=== PATIENT | female | born 1980 | race Caucasian/White ===

== ENCOUNTER 2023-03-27 09:05 | Day surgery (SDC) | payer BC ==
[~2023-03-27] VITALS: Ht 172.7 cm; Wt 126.2 kg
[2023-03-27] VITALS (8 sets, daily range): BP systolic 125–141; BP diastolic 77–94; PULSE 68–80; RESP 14–16; TEMP 97.8; O2SAT 94–100
[2023-03-27] MEDS ORDERED: PROP20TA6 PO (09:44)
[2023-03-27] MEDS ORDERED: PRAZ1CAP5 PO (09:44)
[2023-03-27] MEDS ORDERED: GALC120P SQ (09:45)
[2023-03-27] MEDS ORDERED: SUVO20TA PO (09:45)
[2023-03-27] MEDS ORDERED: GUAN1TAB28 PO (09:45)
[2023-03-27] MEDS ORDERED: UBRO100T PO (09:47)
[2023-03-27] MEDS ORDERED: TIZA4CAP PO (09:47)
[2023-03-27] MEDS ORDERED: ESCI-8 PO (09:50)
[2023-03-27] MEDS ORDERED: [UNRECOGNIZED DRUG - CODE] PO (09:50)
[2023-03-27] MEDS ORDERED: CLOM75CA2 PO (09:50)
[2023-03-27] MEDS ORDERED: ZOLP5TAB8 PO (09:50)
[2023-03-27] MEDS ORDERED: CLON1TAB12 PO (09:50)
[2023-03-27] MEDS ORDERED: LISD50CA3 PO (09:50)
[2023-03-27] MEDS ORDERED: sterile talc powder 5 GM, BUPIVAcaine 0.5% inj/PF 37.5 MG in normal saline 50ml IV soln... IPL ONE (11:05)
[2023-03-27] MEDS ORDERED: BUPIVAcaine 0.5% inj/PF 30 ml vial IJ ONE (11:20)
[2023-03-27 12:37] LABS: GLUCOSE,CSF 59 MG/DL (40-75); TOTAL PROTEIN,CSF 62 MG/DL (15-45)
[2023-03-27 12:55] LABS: APPEARANCE,CSF HAZY
[2023-03-27 12:56] LABS: CSF RBC 1965 /CU MM (0); CSF SUPERNATANT COLOR COLORLESS; CSF VOLUME 2.3 ML; CSF WBC CT 5 /CU MM (0-5); TUBE# COUNTED 1
== END 2023-03-27 13:55 | disposition home or self-care (01) ==
LOC: SSTAY O 09:05
PROVIDERS: ATTEND Nurse Practitioner Family
DX: G93.2 Benign intracranial hypertension (principal); F32.A Depression, unspecified; F90.9 Attention-deficit hyperactivity disorder, unspecified type; F41.9 Anxiety disorder, unspecified; G43.809 Other migraine, not intractable, without status migrainosus; Z88.2 Allergy status to sulfonamides; Z88.1 Allergy status to other antibiotic agents; Z98.890 Other specified postprocedural states; Z79.899 Other long term (current) drug therapy
CPT/HCPCS: 62328; 82945; 84157; 89051

== ENCOUNTER 2023-03-29 06:39 | Emergency (ER) | payer BC ==
[~2023-03-29] VITALS: Ht 172.7 cm; Wt 126.4 kg
[2023-03-29] VITALS (7 sets, daily range): BP systolic 119–137; BP diastolic 69–111; PULSE 61–97; RESP 14–18; TEMP 98.4; O2SAT 99–100
[~2023-03-29 06:39] MED LIST: CLOM75CA2 PO; CLON1TAB12 PO; ESCI-8 PO; GALC120P SQ; GUAN1TAB28 PO; LISD50CA3 PO; PRAZ1CAP5 PO; PROP20TA6 PO; SUVO20TA PO; TIZA4CAP PO; UBRO100T PO; ZOLP5TAB8 PO; [UNRECOGNIZED DRUG - CODE] PO
[2023-03-29] MEDS ORDERED: ketorolac trometh. 30mg/ml inj. IV ONE (07:10)
[2023-03-29] MEDS ORDERED: NORMAL SALINE IV ONE (07:35)
[2023-03-29] MEDS ORDERED: CAFFEINE CITRATE IV ONE (07:35)
[2023-03-29 07:52] LABS: HCG SERUM QL NEGATIVE
[2023-03-29 08:01] LABS: BILIRUBIN,URINE NEGATIVE (Neg); CLARITY,URINE CLEAR (Clear); COLOR,URINE YELLOW (Yellow); GLUCOSE, URINE NEGATIVE (Neg); KETONES,URINE NEGATIVE (Neg); LEUKOCYTE ESTERASE ,URINE NEGATIVE (Neg); NITRITES, URINE NEGATIVE (Neg); OCCULT BLOOD,URINE SMALL (Neg); PROTEIN,URINE NEGATIVE (Neg); UROBILINOGEN,URINE 0.2 E.U/dL (0.2-1.0)
[2023-03-29 08:29] LABS: UA COLLECTION TYPE CLN CATCH MIDSTREAM
[2023-03-29 08:31] LABS: BACTERIA,URINE 2+ /HPF (Neg); RBC,URINE 0-2 /HPF (0-2); SQUAMOUS EPITHELIAL CELL,UR MANY /LPF (FEW)
[2023-03-29 08:32] LABS: MUCUS STRANDS NONE SEEN /LPF (Neg)
[2023-03-29 08:57] LABS: URINE AMPHETAMINE SCREEN NEGATIVE (Neg); URINE BARBITUATE SCREEN NEGATIVE (Neg); URINE BENZODIAZEPINES SCREEN NEGATIVE (Neg); URINE CANNABINOID SCREEN POSITIVE (Neg); URINE COCAINE SCREEN NEGATIVE (Neg); URINE METHADONE SCREEN NEGATIVE (Neg); URINE OPIATE SCREEN NEGATIVE (Neg); URINE PHENCYCLIDINE SCREEN NEGATIVE (Neg)
[2023-03-29] MEDS: normal saline 1000ml 1,000 ML IV SCH ×2 (09:16→10:23)
[2023-03-29] MEDS ORDERED: metoclopramide 5 mg/ml inj IV ONE (09:35)
[2023-03-29] MEDS ORDERED: diphenhydrAMINE 50 mg/ml inj IV ONE (09:35)
[2023-03-29] MEDS ORDERED: ondansetron/PF 4mg/2ml inj ONE (13:20)
[2023-03-29] MEDS ORDERED: HYDR-3965 PO ×3 (14:20→16:39)
[2023-03-29] MEDS ORDERED: HYDROmorphone 1 mg/ml syringe IV ONE (14:30)
[2023-03-29] MEDS ORDERED: ondansetron/PF 4mg/2ml inj IV ONE (14:30)
[2023-03-29] MEDS ORDERED: metoclopramide 5 mg/ml inj IV STA (15:57)
[2023-03-29] MEDS ORDERED: diphenhydrAMINE 50 mg/ml inj IV STA (15:57)
[2023-03-29 16:34] LABS: FREE T4 (FREE THYROXINE) 0.88 NG/DL (0.73-1.40); THYROID STIMULATING HORMONE 3.65 ulU/ml (0.34-4.50)
[2023-03-29] MEDS ORDERED: MECL-302 PO (17:25)
[2023-03-29] MEDS ORDERED: IBUP-1984 PO (17:25)
[2023-03-29] MEDS ORDERED: OXYC-658 PO (17:25)
[2023-03-29] MEDS ORDERED: meclizine 12.5mg tablet PO ONE (17:30)
== END 2023-03-29 17:47 | disposition home or self-care (01) ==
LOC: ER 06:40
DX: G93.89 Other specified disorders of brain (principal); R51.9 Headache, unspecified
CPT/HCPCS: 36415; 62273; 70450; 80305; 81001; 82948; 84439; 84443; 84703; 96361; 96365; 96375; 99291; J0706; J1170; J1200; J1885; J2405; J2765; J7030; J7120; J8597